=== PATIENT | male | born 1985 ===

== ENCOUNTER 2021-04-15 22:10 | Emergency (ER) | payer SELFPAY ==
[~2021-04-15] VITALS: Ht 167.6 cm; Wt 109.1 kg
[2021-04-15 22:10] VITALS: BP 161/101
== END 2021-04-15 23:42 | disposition left against medical advice (07) ==
LOC: EMS 22:10
DX: M79.662 Pain in left lower leg (principal); Z53.21 Procedure and treatment not carried out due to patient leaving prior to being seen by health care provider